=== PATIENT | female | born 1960 | race Two or more races ===

== ENCOUNTER 2025-02-22 16:47 | Emergency (ER) | payer MEDICAID, OTHER ==
[~2025-02-22] VITALS: Ht 144.8 cm; Wt 76.4 kg
--- NOTE | 2025-02-22 17:34 | ECG ---
[facility] Test Date: 2025-02-22 Test Time: 17:29:32 Pat Name: FIORELLA GAMEZ Department: ER Room: Gender: F Video Technician: GP : 1960 Requested By: GERARDO SCHULZ Order Number: [id number] Reading MD: Jere Membreno Measurements Intervals [place] Rate: 65 P: -12 CT: 125 QRS: 11 QRSD: 91 T: 0 QT: 426 QTc: 443 Interpretive Statements Sinus rhythm Inferior infarct, old Electronically Signed On 02-25-2025 20:24:32 PDT by Jere Membreno Please click the below link to view image of tracing.
[2025-02-22 17:54] LABS: Basophils # (auto) 0.1 10 ^3/uL (0-0.2); Basophils % (auto) 1.1 % (0.0-2.0); Eosinophils # (auto) 0.1 10 ^3/uL (0-0.8); Eosinophils % (auto) 1.7 % (0.0-7.0); Hematocrit 44.9 % (36.0-46.0); Hemoglobin 15.6 g/dL (12.2-16.2); Lymphocytes # (auto) 2.5 10 ^3/uL (0.4-5.4); Mean Corpuscular Hemoglobin 30.2 pg (28.0-32.0); Mean Corpuscular Hgb Conc. 34.9 g/dL (32.0-36.0); Mean Corpuscular Volume 86.7 fL (80.0-100.0); Monocytes # (auto) 0.4 10 ^3/uL (0-1.3); Monocytes % (auto) 6.3 % (0.0-12.0); Neutrophils # (auto) 3.3 10 ^3/uL (1.6-8.6); Neutrophils % (auto) 51.9 % (37.0-80.0); Nucleated Red Blood Cells % 0.2 %; Platelet Count (auto) 190 10^3/uL (140-450); Red Blood Cells 5.17 10^6/uL (4.0-5.20); White Blood Cell 6.5 10^3/uL (4.4-10.8)
[2025-02-22 18:10] LABS: Chloride 103 mmol/L (98-107); Sodium 139 mmol/L (136-145)
[2025-02-22 18:11] LABS: Anion Gap 11 (5-15); Carbon Dioxide 25 mmol/L (20-31)
[2025-02-22 18:12] LABS: Calcium 9.9 mg/dL (8.7-10.4)
--- NOTE | 2025-02-22 18:12 | ED.PDOC ---
HPI Comments 64-year-old female brought in by family complaining of elevated blood pressure for the past 6 days intermittently. Patient states her blood pressure has been labile, and that she feels dizzy. She does report and occipital dull headache, no vision changes, numbness or weakness. She states she feels anxious and has been having blood in her stool. She denies any abdominal pain, chest pain or shortness a breath. Chief Complaint: Dizziness Time Seen by MD: 17:50 Reviewed Notes: Nurses Notes, Medications, Allergies Allergies: Coded Allergies: NO KNOWN ALLERGIES (Unverified , 02/22/25) Home Meds Active Scripts Omeprazole Magnesium (Omeprazole) 20 Mg Tab, 20 MG PO DAILY, #60 TAB Prov:GERARDO DE LA CRUZ MD 02/22/25 Information Source: Patient Mode of Arrival: Ambulatory Severity: Moderate Timing: Days Duration: Since onset Prehospital treatment: None Cardiac Risk Factors: HTN PE Risk Factors: None History of: None Modifying Factors: Nothing Associated Signs and Symptoms: None Past Medical History PAST MEDICAL HISTORY: DM, HTN 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 Family History Family History: Unknown Social History Smoker: Non-Smoker Alcohol: Denies ETOH Use Drugs: Denies Drug Use Lives In: Home Constitutional: denies: chills, diaphoresis, fatigue, fever, malaise, sweats, weakness, others EENTM: denies: blurred vision, double vision, ear bleeding, ear discharge, ear drainage, ear pain, ear ringing, eye pain, eye redness, hearing loss, mouth pain, mouth swelling, nasal discharge, nose bleeding, nose congestion, nose pain, photophobia, tearing, throat pain, throat swelling, voice changes, others Respiratory: denies: cough, hemoptysis, orthopnea, SOB at rest, shortness of breath, SOB with excertion, stridor, wheezing, others Cardiovascular: denies: chest pain, dizzy spells, diaphoresis, Dyspnea on exertion, edema, irregular heart beat, left arm pain, lightheadedness, palpitations, PND, syncope, others Gastrointestinal: reports: blood streaked bowels; denies: abdomen distended, abdominal pain, constipated, diarrhea, dysphagia, difficulty swallowing, hematemesis, melena, nausea, poor appetite, poor fluid intake, rectal bleeding, rectal pain, vomiting, others Genitourinary: denies: abnormal vagina bleeding, burning, dyspareunia, dysuria, flank pain, frequency, hematuria, incontinence, pain, , vagina discharge, urgency, others Neurological: reports: dizziness, headache; denies: fainting, left sided numbness, left sided weakness, numbness, paresthesia, pre-existing deficit, right sided numbness, right sided weakness, seizure, speech problems, tingling, tremors, weakness, others Musculoskeletal: denies: back pain, gout, joint pain, joint swelling, muscle pain, muscle stiffness, neck pain, others Integumetry: denies: bruises, change in color, change in hair/nails, dryness, laceration, lesions, lumps, rash, wounds, others Allergic/Immunocompromised: denies: Difficulty Healing, Frequent Infections, Hives, Itching, others Hematologic/Lymphatic: denies: anemia, blood clots, easy bleeding, easy bruising, swollen glands, others Endocrine: denies: excessive hunger, excessive sweating, excessive thirst, excessive urination, flushing, intolerance to cold, intolerance to heat, unexplained weight gain, unexplained weight loss, others Psychiatric: denies: anxiety, bipolar disorder, depression, hopeless, panic disorder, schizophrenia, sleepless, suicidal, others All Other Systems: Reviewed and Negative Physical Exam General Appearance: No Apparent Distress, Obese HEENT: Other (Pupils and face symmetric. Moist mucous membranes.) Neck: Full Range of Motion, Normal Inspection Respiratory: Lungs Clear, No Accessory Muscle Use, No Respiratory Distress, Normal Breath Sounds Cardiovascular: No Edema, No JVD, Regular Rate/Rhythm Breast Exam: Deferred Gastrointestinal: Non Tender, Soft Genitalia: Deferred Pelvic: Deferred Rectal: Deferred Extremities: Normal inspection, Normal range of motion, Non-tender, No pedal edema Neurologic: Alert (Oriented x4), Normal Affect, Normal Mood, Other (Ambulatory without difficulty.) Cerebellar Function: NOT DONE Reflexes: NOT DONE Skin: Dry, Normal Color, Warm Lymphatic: NOT DONE EKG EKG : Comments Sinus rhythm, rate 65, normal intervals, normal axis, old inferior infarct, nonspecific T change. Was a procedure done? Was a procedure done?: No CP Differential Dx Differential Diagnosis: Anxiety / Panic Attack, Heart Failure, [place], Renal Failure Differential Diagnosis: HTN Essential, HTN Accelerated Comment Anemia, diverticular disease, ulcer disease, neoplastic disease, among others X-Ray, Labs, Meds, VS Vital Signs Date Time Temp Pulse Resp B/P (MAP) Pulse Ox O2 Delivery O2 Flow Rate FiO2 02/22/25 20:14 64 18 96 Room Air* 0 21 02/22/25 20:14 98.1 64 14 159/78 (105) 96 98.1 02/22/25 17:33 98.5 72 18 152/78 (102) 96 98.5 02/22/25 17:29 65 Lab Test 02/22/25 18:50 02/22/25 17:42 02/22/25 17:22 Range/Units Troponin I High Sensitivity < 3 L < 3 L </=34 ng/L White Blood Count 6.5 4.4-10.8 10^3/uL Red Blood Count 5.17 4.0-5.20 10^6/uL Hemoglobin 15.6 12.2-16.2 g/dL Hematocrit 44.9 36.0-46.0 % Mean Corpuscular Volume 86.7 80.0-100.0 fL Mean Corpuscular Hemoglobin 30.2 28.0-32.0 pg Mean Corpuscular Hemoglobin Concent 34.9 32.0-36.0 g/dL Red Cell Distribution Width 14.0 11.8-14.3 % Platelet Count 190 140-450 10^3/uL Mean Platelet Volume 9.3 6.9-10.8 fL Neutrophils (%) (Auto) 51.9 37.0-80.0 % Lymphocytes (%) (Auto) 39.0 10.0-50.0 % Monocytes (%) (Auto) 6.3 0.0-12.0 % Eosinophils (%) (Auto) 1.7 0.0-7.0 % Basophils (%) (Auto) 1.1 0.0-2.0 % Neutrophils # (Auto) 3.3 1.6-8.6 10 ^3/uL Lymphocytes # (Auto) 2.5 0.4-5.4 10 ^3/uL Monocytes # (Auto) 0.4 0-1.3 10 ^3/uL Eosinophils # (Auto) 0.1 0-0.8 10 ^3/uL Basophils # (Auto) 0.1 0-0.2 10 ^3/uL Nucleated Red Blood Cells 0.2 % Prothrombin Time 10.1 9.3-11.8 sec Prothrombin Time INR 0.95 0.9-1.15 Activated Partial Thromboplast Time 26.5 24.5-34.5 SEC Sodium Level 139 136-145 mmol/L Potassium Level 4.0 3.5-5.1 mmol/L Chloride Level 103 98-107 mmol/L Carbon Dioxide Level 25 20-31 mmol/L Anion Gap 11 5-15 Blood Urea Nitrogen 15 9-23 mg/dL Creatinine 0.69 0.550-1.02 mg/dL Glomerular Filtration Rate Calc 97 >90 mL/min BUN/Creatinine Ratio 21.7 H 10.0-20.0 Serum Glucose 201 H 74-106 mg/dL Calcium Level 9.9 8.7-10.4 mg/dL B-Type Natriuretic Peptide 13.48 0-100 pg/mL POC Glucose 208 H 70-106 mg/dl [place] [id number] Ph: [phone] DIAGNOSTIC IMAGING Diagnostic Imaging Report : [id number] Signed PATIENT: FIORELLA GAMEZ ACCT: [id number] UNIT: [id number] : 1960 LOC: ER ROOM / BED: / AGE / SEX: 64 / F ADM STATUS: REG ER SERVICE 31 ORDERING PHYSICIAN: GERARDO DE LA CRUZ MD PROCEDURE(s): CXRP - CHEST PORTABLE REASON: high bp ORDER NUMBER(s): [id number], ACCESSION NUMBER(s): [id number] EXAM: XY CHEST PORTABLE REASON FOR EXAM: high bp TECHNIQUE: 1 view of the chest COMPARISON: None FINDINGS: LUNGS: No pleural effusion, consolidation, or pneumothorax MEDIASTINUM: Unremarkable BONES: No acute osseous abnormality OTHER: None IMPRESSION: 1. No radiographic evidence of an acute cardiopulmonary process. ATED BY: MOE SONI MD DICTATED DATE/TIME: 02/22/251808 SIGNED BY: MOE SONI MD SIGNED DATE/TIME: 02/22/251808 CC: PROCEDURE(s): ABPL - CT AB PEL WO CON-NO ORAL OR IV REASON: Blood in stool ORDER NUMBER(s): [id number], ACCESSION NUMBER(s): [id number] Indication: Blood in stool Technique: CT axial images of the abdomen and pelvis are obtained without contrast. Coronal and sagittal reformats were obtained. Radiation Dose Information: CTDI volume is 19.64 mGy. Dose-length product is 925.19 mGy*cm Comparison: None FINDINGS: There is limited interpretation of the abdomen and pelvis without administration of intravenous contrast. The lung bases demonstrate no pleural effusion. Adrenal glands, spleen, pancreas unremarkable in shape. Liver unremarkable in shape. Cholecystectomy. Kidneys demonstrate no hydronephrosis or nephrolithiasis. Stomach partially distended. Small bowel loops are normal in caliber. Moderate volume stool within the colon. Normal appendix. Abdominal aortic atherosclerotic disease. Bladder partially distended. No free pelvic fluid. No inguinal lymphadenopathy. [id number] thoracolumbar degenerative disc disease. Moderate lumbar facet hypertrophic changes. Fat containing lesion in the region of the conus at the level of the L2/L3 vertebral bodies measuring 1.3 cm. IMPRESSION: 1. Moderate volume stool within the colon. 2. Cholecystectomy. 3. Fat containing 4. 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 5. This can be further characterized with MRI of the lumbar spine with and with out contrast. 6. Other findings as described. X-Ray, Labs, Meds, VS Comment 64-year-old female with a history of hypertension and diabetes complaining of elevated and labile blood pressure, occipital headache, dizziness, feeling anxious, and blood in stool Vitals remarkable for BP 152/78 Exam unremarkable Rhythm strip independently interpreted by me: Sinus rhythm, rate 65, no ectopy. Chest x-ray unremarkable CT abdomen and pelvis IMPRESSION: 1. Moderate volume stool within the colon. 2. Cholecystectomy. 3. Fat containing 4. 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 5. This can be further characterized with MRI of the lumbar spine with and without contrast. 6. Other findings as described. CBC normal, basic metabolic panel unremarkable, coagulation panel normal, BNP and 2 serial troponins negative Patient treated with the following in the ED: Ativan 0.5 mg IM, protonix 40mg po On re-evaluation, patient was well-appearing. Vitals were stable. Patient appears stable for discharge with close outpatient follow-up with her primary physician. No intervention with regard to the blood pressure is necessary at this time. Patient advised to continue her current blood pressure medication as directed. Patient also states she has advised her primary physician about the blood in her stool, and has a colonoscopy scheduled for April. Patient advised to return to ER for heavy bleeding or any other concern. Rx omeprazole Time of 1ST Reevaluation: 18:20 Reevaluation 1ST: Unchanged Time of 2ND Reevaluation: 19:40 Reevaluation 2ND: Improved Patient Education/Counseling: Diagnosis, Treatment, Need For Follow Up Family Education/Counseling: No Family Present Departure 1 Departure Time of Disposition: 19:40 Impression: Primary Impression: Hypertension Qualified Codes: I10 - Essential (primary) hypertension Additional Impression: GI bleeding Qualified Codes: K92.2 - Gastrointestinal hemorrhage, unspecified Disposition: HOME / SELF CARE / HOMELESS Condition: Stable Additional Instructions: Blood tests were unremarkable. Your chest x-ray was normal. Your EKG was unremarkable. Your CT scan did not show any finding that would explain your bleeding. I have prescribed an acid outside collector to help treat your bleeding. Follow-up with your primary doctor in 1-2 days. Maintain your appointment for colonoscopy. Return to ER for heavy bleeding or any other concern. e-Prescriptions Omeprazole Magnesium (Omeprazole) 20 Mg Tab 20 MG PO DAILY, #60 TAB Prov: GERARDO DE LA CRUZ MD 02/22/25 Discharged With: Relative Critical Care Note Critical Care Time?: No Stability Stability form required: No Heart Score Heart Score: Heart Score Response (Comments) Value History N/A 0 EKG N/A 0 Age N/A 0 Risk Factors N/A 0 Troponin N/A 0 Total 0 I personally scribed for GERARDO DE LA CRUZ MD ([email or web address]) on 02/22/25 at 18:12. Electronically submitted by Sonya Kilpatrick ([email or web address]). I personally scribed for GERARDO DE LA CRUZ MD ([email or web address]) on 02/22/25 at 18:27. Electronically submitted by Sonya Kilpatrick ([email or web address]). GERARDO DE LA CRUZ MD Feb 22, 2025 18:12
[2025-02-22 18:19] LABS: Glucose 201 mg/dL (74-106)
--- NOTE | 2025-02-22 18:46 | DVH ---
Indication: Blood in stool Technique: CT axial images of the abdomen and pelvis are obtained without contrast. Coronal and sagit alcira reformats were obtained. Radiation Dose Information: CTDI volume is 19.64 mGy. Dose-length product is 925.19 mGy*cm Comparison: None FINDINGS: There is limited interpretation of the abdomen and pelvis without administration of intravenous contr ast. The lung bases demonstrate no pleural effusion. Adrenal glands, spleen, pancreas unremarkable in shape. Liver unremarkable in shape. Cholecystectom y. Kidneys demonstrate no hydronephrosis or nephrolithiasis. Stomach partially distended. Small bowel loops are normal in caliber. Moderate volume stool within the colon. Normal appendix. Abdominal aortic atherosclerotic disease. Bladder partially distended. No free pelvic fluid. No ingui nal lymphadenopathy. [id number] thoracolumbar degenerative disc disease. Moderate lumbar facet hypertrophic changes. Fat containing lesion in the region of the conus at the level of the L2/L3 vertebral bodies measurin g 1.3 cm. IMPRESSION: 1. Moderate volume stool within the colon. 2. Cholecystectomy. 3. Fat containing 4. 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 5. This can be further characterized with MRI of the lumbar spine with and without contrast. 6. Other findings as described.
[2025-02-22 18:54] LABS: BUN/Creatinine Ratio 21.7 (10.0-20.0); Blood Urea Nitrogen 15 mg/dL (9-23)
[2025-02-22 18:55] LABS: INR 0.95 (0.9-1.15); Partial Thromboplastin Time 26.5 SEC (24.5-34.5); Prothrombin Time 10.1 sec (9.3-11.8)
[2025-02-22] MEDS ORDERED: OMEP-434 PO (19:43)
[2025-02-22 20:14] VITALS: BP 159/78; PULSE 64; RESP 18; TEMP 98.1; O2SAT 96
[2025-02-22] MEDS: PANTOPRAZOLE 40 MG/10 ML VIAL INJ IV ONE (20:26)
[2025-02-22] MEDS: LORazepam 2MG/ML-1ML VIAL IV ONE (20:42)
[2025-02-22] MEDS ORDERED: LORazepam 2MG/ML-1ML VIAL IM ONE (20:45)
[2025-02-22] MEDS: PANTOPRAZOLE 40 MG TAB PO ONE (21:04)
== END 2025-02-22 21:07 | disposition home or self-care (01) ==
LOC: ER 16:54
DX: I10 Essential (primary) hypertension (principal); K92.2 Gastrointestinal hemorrhage, unspecified; E11.9 Type 2 diabetes mellitus without complications; R06.02 Shortness of breath; Z98.890 Other specified postprocedural states
CPT/HCPCS: 36415; 71045; 74176; 80048; 82947; 83880; 84484; 85025; 85610; 85730; 93005; 96374; 99285; J2060; 82962